=== PATIENT | male | born 1945 | race Caucasian/White ===

== ENCOUNTER 2021-09-06 10:30 | Inpatient (IN) ==
[2021-09-06] MEDS ORDERED: *HR* Metoprolol 5 MG/5 ML VIAL IVP ONE ×2 (10:44→15:46)
[2021-09-06] MEDS ORDERED: 0.9 % Sodium Chloride 250 ML IVC ONE (10:45)
[2021-09-06] MEDS ORDERED: Isovue-370 500 ML BOTTLE IVP ONE (10:45)
[2021-09-06 11:20] LABS: Basophils # 0.1 K/mcL (0.0-0.2); Basophils % 0.5 %; Eosinophils # 0.1 K/mcL (0.0-0.6); Eosinophils % 0.5 %; Hemoglobin 15.4 g/dL (12.9-16.9); Immature Granulocytes % 0.2 % (0-4); Lymphocytes % 8.6 %; Mean Corpuscular HGB Conc 32.8 g/dL (31.6-35.5); Mean Corpuscular Hemoglobin 30.2 pg (28.0-33.3); Mean Corpuscular Volume 92.2 fL (83.0-100.0); Mean Platelet Volume 9.2 fL (9.4-12.4); Monocytes # 0.7 K/mcL (0.0-1.3); Monocytes % 5.9 %; Neutrophils # 9.9 K/mcL (1.6-8.9); Platelet Count 183 K/mcL (140-400); Segmented Neutrophils % 84.3 %; White Blood Count 11.7 K/mcL (4.3-11.1)
[2021-09-06 11:30] LABS: INR 1.5; Prothrombin Time 16.5 Seconds (9.4-12.1)
[2021-09-06 11:33] LABS: Activated Partial Thrombo Time 33.3 Seconds (26.0-36.0)
[2021-09-06 11:49] LABS: Alanine Aminotransferase 19 Units/L (7-52); Albumin 4.2 g/dL (3.5-5.7); Albumin/Globulin Ratio 1.4 (1.1-2.2); Alkaline Phosphatase 81 Units/L (34-104); Aspartate Amino Transferase 25 Units/L (13-39); BUN/Creatinine Ratio 14 (6-26); Bilirubin,Total 0.8 mg/dL (0.3-1.0); Blood Urea Nitrogen 18 mg/dL (8-23); Calcium 8.9 mg/dL (8.6-10.3); Carbon Dioxide 22 mEq/L (23-29); Chloride 106 mEq/L (98-107); Globulin 2.9 g/dL (2.4-3.5); Glucose 254 mg/dL (70-105); Lipase 23 Units/L (11-82); Magnesium 1.6 mg/dL (1.6-2.6); Osmolality,Calculated 299 (280-300); Phosphorous 3.2 mg/dL (2.7-4.5); Potassium 3.3 mEq/L (3.5-5.1); Sodium 139 mEq/L (136-145); Total Protein 7.1 g/dL (6.4-8.9); Troponin I < 0.03 ng/mL (< 0.04); eGFR For African Americans > 60 (> 60); eGFR For Non-African Americans 54 (> 60)
[2021-09-06] MEDS ORDERED: Ketorolac 15 MG/ML VIAL IVP ONE (12:08)
[2021-09-06 13:31] LABS: Bilirubin,Urine Negative (Negative); Blood,Urine Negative (Negative); Clarity,Urine Clear (Clear); Color,Urine Colorless (Yellow); Glucose,Urine (UA) 150 mg/dL (Normal); Ketones,Urine Negative (Negative); Leukocyte Esterase,Urine Negative (Negative); Mucus,Urine Few per lpf (None-Few); Nitrite,Urine Negative (Negative); PH,Urine 7.5 pH Units (5.0-8.0); Protein,Urine Negative (Neg-Trace); RBC,Urine 0-3 per hpf (0-3); Specific Gravity,Urine 1.015 (1.010-1.025); Squamous Epithelial Cell,Urine Few per hpf (None-Few); Urobilinogen,Urine Normal (Normal); WBC,Urine 0-3 per hpf (0-3)
[2021-09-06] MEDS ORDERED: Ondansetron ODT 4 MG TAB.RAPDIS SL PRN (14:11)
[2021-09-06] MEDS ORDERED: Melatonin 3 MG TABLET PO PRN (14:11)
[2021-09-06] MEDS ORDERED: MOM Conc 10 ML UD.LIQ PO PRN (14:11)
[2021-09-06] MEDS ORDERED: Naloxone 0.4 MG/ML INJ IVP PRN (14:11)
[2021-09-06] MEDS ORDERED: 0.9 % Sodium Chloride 1,000 ML IVC SCH (14:15)
[2021-09-06] MEDS ORDERED: *HR* Dextrose 50 % in Water (Syg) 50 ML SYRINGE IVP PRN (14:37)
[2021-09-06] MEDS ORDERED: Dextrose Gel 15 GM/37.5 ML TUBE PO PRN ×2 (14:37)
[2021-09-06] MEDS ORDERED: D5% in Water 1,000 ML IVC PRN (14:37)
[2021-09-06] MEDS ORDERED: Ondansetron 4 MG/2 ML VIAL IVP ONE (15:46)
[2021-09-06] MEDS ORDERED: Ondansetron 4 MG/2 ML VIAL IVP PRN (16:49)
[2021-09-06] MEDS: Insulin LISPRO 300 UNITS/3 ML VIAL SUBQ SCH (17:21)
[2021-09-06] MEDS: MetroNIDAZOLE 500 MG/100 ML 500 MG/100 ML BAG IVPB SCH ×2 (17:21→23:11)
[2021-09-06] MEDS: *HR* Metoprolol 5 MG/5 ML VIAL IVP PRN (18:11)
[2021-09-06] MEDS ORDERED: 0.9 % Sodium Chloride 500 ML IVC ONE (19:34)
[2021-09-06] MEDS ORDERED: *HR* Digoxin 0.5 MG/2 ML AMPUL IVP ONE (19:43)
[2021-09-06] MEDS: Apixaban 5 MG TABLET PO SCH (20:03)
[2021-09-06] MEDS: DilTIAZem 50 MG/50 ML IV.SOLN IVC SCH (22:08)
[2021-09-07 01:43] LABS: Basophils % 0.1 %; Hemoglobin 14.7 g/dL (12.9-16.9); Immature Granulocytes % 0.6 % (0-4); Lymphocytes # 0.2 K/mcL (0.6-4.6); Lymphocytes % 1.4 %; Mean Corpuscular HGB Conc 32.7 g/dL (31.6-35.5); Mean Corpuscular Hemoglobin 30.2 pg (28.0-33.3); Mean Corpuscular Volume 92.4 fL (83.0-100.0); Mean Platelet Volume 9.2 fL (9.4-12.4); Monocytes # 0.4 K/mcL (0.0-1.3); Monocytes % 2.2 %; Neutrophils # 15.4 K/mcL (1.6-8.9); Platelet Count 118 K/mcL (140-400); Red Blood Count 4.87 M/mcL (4.19-5.50); Red Cell Distribution Width 13.2 % (11.5-14.5); Segmented Neutrophils % 95.7 %; White Blood Count 16.1 K/mcL (4.3-11.1)
[2021-09-07 01:56] LABS: Calcium 8.5 mg/dL (8.6-10.3); Magnesium 1.3 mg/dL (1.6-2.6); Potassium 3.1 mEq/L (3.5-5.1)
[2021-09-07] MEDS: Ibuprofen 400 MG TABLET PO PRN ×3 (02:35→18:58)
[2021-09-07] MEDS: DilTIAZem 50 MG/50 ML IV.SOLN IVC SCH (03:48)
[2021-09-07] MEDS ORDERED: Magnesium Oxide 400 MG TABLET PO ONE (07:18)
[2021-09-07] MEDS: Apixaban 5 MG TABLET PO SCH ×2 (08:32→20:22)
[2021-09-07] MEDS: Insulin LISPRO 300 UNITS/3 ML VIAL SUBQ SCH ×3 (08:34→16:54)
[2021-09-07] MEDS ORDERED: Metoprolol XL (24 HR) Succ 25 MG TAB.ER.24H PO SCH (09:00)
[2021-09-07] MEDS: MetroNIDAZOLE 500 MG/100 ML 500 MG/100 ML BAG IVPB SCH (09:37)
[2021-09-07] MEDS ORDERED: Metoprolol XL (24 HR) Succ 50 MG TAB.ER.24H PO SCH (10:15)
[2021-09-07] MEDS: Piperacillin/Tazobactam 3.375 GM in 0.9 % Sodium Chloride Mini Bag 100 ML IVPB SCH ×2 (16:54→23:15)
[2021-09-07] MEDS: *HR* Metoprolol 5 MG/5 ML VIAL IVP PRN (17:25)
[2021-09-07] MEDS ORDERED: DilTIAZem CD (24hr) 120 MG CAP.ER.24H PO SCH (18:30)
[2021-09-07] MEDS ORDERED: Acetaminophen IV 500 MG/50 ML BAG IVPB ONE (19:26)
[2021-09-07] MEDS ORDERED: *HR* Metoprolol 5 MG/5 ML VIAL IVP ONE (19:26)
[2021-09-07] MEDS ORDERED: Topiramate 100 MG TABLET PO SCH (21:00)
[2021-09-07] MEDS ORDERED: levETIRAcetam 250 MG TABLET PO SCH (21:00)
[2021-09-07] MEDS ORDERED: Ringers Solution, Lactated 1,000 ML IVC ONE ×3 (23:02→23:15)
[2021-09-08] MEDS ORDERED: Ringers Solution, Lactated 1,000 ML IVC ONE ×3 (00:30→07:29)
[2021-09-08 01:00] LABS: Basophils % 0.1 %; Hematocrit 40.6 % (37.5-50.1); Hemoglobin 13.1 g/dL (12.9-16.9); Immature Granulocytes % 0.7 % (0-4); Immature Platelets 3.1 % (1.1-6.1); Lymphocytes # 0.4 K/mcL (0.6-4.6); Lymphocytes % 2.8 %; Mean Corpuscular HGB Conc 32.3 g/dL (31.6-35.5); Mean Corpuscular Hemoglobin 30.3 pg (28.0-33.3); Mean Corpuscular Volume 93.8 fL (83.0-100.0); Mean Platelet Volume 9.9 fL (9.4-12.4); Monocytes # 0.9 K/mcL (0.0-1.3); Neutrophils # 13.2 K/mcL (1.6-8.9); Red Blood Count 4.33 M/mcL (4.19-5.50); Red Cell Distribution Width 13.5 % (11.5-14.5); Segmented Neutrophils % 90.4 %; White Blood Count 14.6 K/mcL (4.3-11.1)
[2021-09-08 01:02] LABS: Platelet Count 97 K/mcL (140-400)
[2021-09-08 01:03] LABS: Bacteria,Urine Few per hpf (None-Few); Bilirubin,Urine Negative (Negative); Blood,Urine Large (Negative); Clarity,Urine Turbid (Clear); Color,Urine Yellow (Yellow); Glucose,Urine (UA) Normal (Normal); Ketones,Urine Negative (Negative); Leukocyte Esterase,Urine Small (Negative); Mucus,Urine Few per lpf (None-Few); Nitrite,Urine Negative (Negative); PH,Urine 5.5 pH Units (5.0-8.0); Protein,Urine 70 mg/dL (Neg-Trace); RBC,Urine 50-100 per hpf (0-3); Specific Gravity,Urine > 1.030 (1.010-1.025); Squamous Epithelial Cell,Urine Few per hpf (None-Few); Urobilinogen,Urine Normal (Normal); WBC,Urine 15-30 per hpf (0-3)
[2021-09-08 01:18] LABS: Potassium 3.4 mEq/L (3.5-5.1)
[2021-09-08] MEDS ORDERED: Ringers Solution, Lactated 500 ML IVC ONE (03:30)
[2021-09-08] MEDS ORDERED: *HR* Succinylcholine 200 MG/10 ML VIAL IVP ONE (04:11)
[2021-09-08] MEDS ORDERED: *HR* Propofol 200 MG/20 ML VIAL IVP ONE (04:11)
[2021-09-08] MEDS ORDERED: *HR* FentaNYL (PF) 100 MCG/2 ML VIAL ONE (04:11)
[2021-09-08] MEDS ORDERED: Lidocaine HCL 4 ML Topical Solution (Laryng-O-Jet Kit Sterile Pak) TP ONE (04:11)
[2021-09-08] MEDS ORDERED: *HR* Rocuronium Bromide 50 MG/5 ML VIAL ONE (04:11)
[2021-09-08] MEDS ORDERED: Ondansetron 4 MG/2 ML VIAL ONE (04:11)
[2021-09-08] MEDS ORDERED: Lidocaine -MPF 2% 5 ML VIAL ONE (04:11)
[2021-09-08] MEDS ORDERED: Norepinephrine 4 MG/254 ML IV.SOLN IVC SCH ×2 (04:15→07:29)
[2021-09-08] MEDS ORDERED: 0.9 % Sodium Chloride 500 ML IVC ONE (04:23)
[2021-09-08] MEDS ORDERED: *HR* Vasopressin 20 UNIT/ML VIAL ONE (04:37)
[2021-09-08] MEDS ORDERED: Ondansetron 4 MG/2 ML VIAL IVP PRN ×3 (04:47→14:27)
[2021-09-08] MEDS ORDERED: *HR* HYDROmorphone PF 0.5 MG/0.5 ML SYRINGE IVP PRN (04:47)
[2021-09-08] MEDS ORDERED: Heparin 1,000 UNITS/500 mL 500 ML ONE (05:24)
[2021-09-08] MEDS ORDERED: EPHEDrine 50 MG/ML VIAL ONE (05:31)
[2021-09-08] MEDS ORDERED: Potassium Chloride 40 MEQ, Lidocaine 1% 2 ML in 0.9 % Sodium Chloride 500 ML IVPB ONE (07:11)
[2021-09-08] MEDS ORDERED: Ibuprofen 400 MG TABLET PO PRN (07:29)
[2021-09-08] MEDS ORDERED: *HR* Dextrose 50 % in Water (Syg) 50 ML SYRINGE IVP PRN ×2 (07:29→14:27)
[2021-09-08] MEDS ORDERED: D5% in Water 1,000 ML IVC PRN ×2 (07:29→14:27)
[2021-09-08] MEDS ORDERED: Dextrose Gel 15 GM/37.5 ML TUBE PO PRN ×4 (07:29→14:27)
[2021-09-08] MEDS ORDERED: Naloxone 0.4 MG/ML INJ IVP PRN ×2 (07:29→14:27)
[2021-09-08] MEDS ORDERED: Melatonin 3 MG TABLET PO PRN ×2 (07:29→14:27)
[2021-09-08] MEDS ORDERED: *HR* Metoprolol 5 MG/5 ML VIAL IVP PRN (07:29)
[2021-09-08] MEDS ORDERED: MOM Conc 10 ML UD.LIQ PO PRN ×2 (07:29→14:27)
[2021-09-08] MEDS ORDERED: 0.9 % Sodium Chloride 1,000 ML IVC ONE (07:45)
[2021-09-08] MEDS ORDERED: 0.9 % Sodium Chloride 1,000 ML ONE (07:46)
[2021-09-08] MEDS ORDERED: Piperacillin/Tazobactam 3.375 GM in 0.9 % Sodium Chloride Mini Bag 100 ML IVPB SCH ×2 (08:00)
[2021-09-08] MEDS ORDERED: Cefepime HCl 2,000 MG in Water for inj. (sterile) 20 ML IVP SCH ×2 (08:00→21:00)
[2021-09-08] MEDS: Insulin LISPRO 300 UNITS/3 ML VIAL SUBQ SCH ×3 (08:25→17:07)
[2021-09-08] MEDS ORDERED: DilTIAZem CD (24hr) 120 MG CAP.ER.24H PO SCH (09:00)
[2021-09-08] MEDS ORDERED: Apixaban 5 MG TABLET PO SCH (09:00)
[2021-09-08] MEDS ORDERED: Finasteride 5 MG TABLET PO SCH ×2 (09:00)
[2021-09-08] MEDS ORDERED: levETIRAcetam 500 MG/5 ML UDC PO SCH (09:00)
[2021-09-08] MEDS ORDERED: Metoprolol XL (24 HR) Succ 50 MG TAB.ER.24H PO SCH (09:00)
[2021-09-08] MEDS ORDERED: Aspirin Enteric Coated 81 MG Tablet PO SCH ×2 (09:00)
[2021-09-08] MEDS ORDERED: levETIRAcetam 250 MG TABLET PO SCH (09:00)
[2021-09-08 09:55] LABS: Protein/Creatinine Ratio,Urine 15.11 mg/mg (0.00-0.20); Sodium, Urine 88.4 mEq/L
[2021-09-08] MEDS ORDERED: Ringers Solution, Lactated 1,000 ML IVC SCH (11:30)
[2021-09-08 12:40] LABS: Calcium 7.5 mg/dL (8.6-10.3); Potassium 3.4 mEq/L (3.5-5.1)
[2021-09-08] MEDS: Cefepime HCl 2,000 MG in Water for inj. (sterile) 20 ML IVP SCH (20:35)
[2021-09-08] MEDS: Topiramate 100 MG TABLET PO SCH (20:36)
[2021-09-08] MEDS: Apixaban 5 MG TABLET PO SCH (20:55)
[2021-09-08] MEDS ORDERED: Topiramate 100 MG TABLET PO SCH (21:00)
[2021-09-08] MEDS: Ringers Solution, Lactated 1,000 ML IVC SCH (22:54)
[2021-09-09] MEDS: levETIRAcetam 500 MG/5 ML UDC PO SCH ×3 (00:02→20:27)
[2021-09-09 04:20] LABS: Hematocrit 33.9 % (37.5-50.1); Hemoglobin 11.2 g/dL (12.9-16.9); Immature Platelets 3.4 % (1.1-6.1); Mean Corpuscular Hemoglobin 30.4 pg (28.0-33.3); Mean Corpuscular Volume 92.1 fL (83.0-100.0); Mean Platelet Volume 10.5 fL (9.4-12.4); Red Blood Count 3.68 M/mcL (4.19-5.50); Red Cell Distribution Width 13.4 % (11.5-14.5); White Blood Count 11.2 K/mcL (4.3-11.1)
[2021-09-09 04:32] LABS: Calcium 7.5 mg/dL (8.6-10.3); Potassium 3.2 mEq/L (3.5-5.1)
[2021-09-09] MEDS: Ringers Solution, Lactated 1,000 ML IVC SCH ×3 (05:12→19:56)
[2021-09-09] MEDS: DilTIAZem CD (24hr) 120 MG CAP.ER.24H PO SCH (07:27)
[2021-09-09] MEDS: Aspirin Enteric Coated 81 MG Tablet PO SCH (07:27)
[2021-09-09] MEDS: Finasteride 5 MG TABLET PO SCH (07:27)
[2021-09-09] MEDS: Cefepime HCl 2,000 MG in Water for inj. (sterile) 20 ML IVP SCH (07:28)
[2021-09-09] MEDS: Apixaban 5 MG TABLET PO SCH ×2 (07:28→20:27)
[2021-09-09] MEDS: Metoprolol XL (24 HR) Succ 50 MG TAB.ER.24H PO SCH (07:28)
[2021-09-09] MEDS: Insulin LISPRO 300 UNITS/3 ML VIAL SUBQ SCH ×3 (07:29→16:37)
[2021-09-09] MEDS: Cefepime HCl 1,000 MG in Water for inj. (sterile) 10 ML IVP SCH (08:52)
[2021-09-09] MEDS ORDERED: Calcium Gluconate 1gm/50mL 1 GM/50 ML BAG IVPB ONE (14:50)
[2021-09-09] MEDS: Topiramate 100 MG TABLET PO SCH (19:57)
[2021-09-10 00:38] LABS: Mean Corpuscular Volume 92.5 fL (83.0-100.0)
[2021-09-10 00:40] LABS: Hematocrit 36.8 % (37.5-50.1); Hemoglobin 11.9 g/dL (12.9-16.9); Immature Platelets 3.6 % (1.1-6.1); Mean Corpuscular HGB Conc 32.3 g/dL (31.6-35.5); Mean Corpuscular Hemoglobin 29.9 pg (28.0-33.3); Mean Platelet Volume 9.9 fL (9.4-12.4); Red Blood Count 3.98 M/mcL (4.19-5.50); Red Cell Distribution Width 13.3 % (11.5-14.5); White Blood Count 9.9 K/mcL (4.3-11.1)
[2021-09-10 01:48] LABS: Calcium 7.9 mg/dL (8.6-10.3); Potassium 3.2 mEq/L (3.5-5.1)
[2021-09-10] MEDS: Ringers Solution, Lactated 1,000 ML IVC SCH ×2 (06:42→15:29)
[2021-09-10] MEDS: Insulin LISPRO 300 UNITS/3 ML VIAL SUBQ SCH ×3 (09:11→16:37)
[2021-09-10] MEDS: Finasteride 5 MG TABLET PO SCH (09:11)
[2021-09-10] MEDS: Metoprolol XL (24 HR) Succ 50 MG TAB.ER.24H PO SCH (09:11)
[2021-09-10] MEDS: Apixaban 5 MG TABLET PO SCH (09:11)
[2021-09-10] MEDS: Cefepime HCl 1,000 MG in Water for inj. (sterile) 10 ML IVP SCH (09:11)
[2021-09-10] MEDS: DilTIAZem CD (24hr) 120 MG CAP.ER.24H PO SCH (09:11)
[2021-09-10] MEDS: Aspirin Enteric Coated 81 MG Tablet PO SCH (09:11)
[2021-09-10] MEDS: levETIRAcetam 500 MG/5 ML UDC PO SCH ×2 (09:12→21:08)
[2021-09-10] MEDS: Topiramate 100 MG TABLET PO SCH (21:09)
[2021-09-10 22:48] LABS: Lambda Qnt Free Light Chains 45.69 mg/L (5.71-26.30)
[2021-09-11] MEDS: Ringers Solution, Lactated 1,000 ML IVC SCH ×3 (02:09→23:51)
[2021-09-11 02:56] LABS: Hematocrit 37.5 % (37.5-50.1); Hemoglobin 12.2 g/dL (12.9-16.9); Immature Platelets 2.5 % (1.1-6.1); Mean Corpuscular HGB Conc 32.5 g/dL (31.6-35.5); Mean Corpuscular Hemoglobin 30.7 pg (28.0-33.3); Mean Corpuscular Volume 94.2 fL (83.0-100.0); Mean Platelet Volume 10.2 fL (9.4-12.4); Red Blood Count 3.98 M/mcL (4.19-5.50); Red Cell Distribution Width 13.2 % (11.5-14.5); White Blood Count 7.8 K/mcL (4.3-11.1)
[2021-09-11 03:13] LABS: Calcium 7.7 mg/dL (8.6-10.3)
[2021-09-11] MEDS ORDERED: Potassium Chloride 40 MEQ, Lidocaine 1% 2 ML in 0.9 % Sodium Chloride 500 ML IVPB ONE (08:22)
[2021-09-11] MEDS: Aspirin Enteric Coated 81 MG Tablet PO SCH (08:42)
[2021-09-11] MEDS: Metoprolol XL (24 HR) Succ 50 MG TAB.ER.24H PO SCH (08:42)
[2021-09-11] MEDS: levETIRAcetam 500 MG/5 ML UDC PO SCH (08:42)
[2021-09-11] MEDS: Finasteride 5 MG TABLET PO SCH (08:42)
[2021-09-11] MEDS: DilTIAZem CD (24hr) 120 MG CAP.ER.24H PO SCH (08:42)
[2021-09-11] MEDS: Insulin LISPRO 300 UNITS/3 ML VIAL SUBQ SCH ×3 (08:43→16:43)
[2021-09-11 11:17] LABS: Kappa Qnt Free Light Chains 97.12 mg/L (3.30-19.40)
[2021-09-11 11:18] LABS: VBG HCO3 21 mEq/L (21-27); VBG PCO2 32 mmHg (41-51); VBG PH 7.43 pH Units (7.32-7.42); VBG PO2 159 mmHg (25-50)
[2021-09-11] MEDS: Topiramate 100 MG TABLET PO SCH (21:49)
[2021-09-12 05:08] LABS: Hematocrit 33.6 % (37.5-50.1); Hemoglobin 11.2 g/dL (12.9-16.9); Mean Corpuscular HGB Conc 33.3 g/dL (31.6-35.5); Mean Corpuscular Hemoglobin 30.6 pg (28.0-33.3); Mean Corpuscular Volume 91.8 fL (83.0-100.0); Mean Platelet Volume 9.9 fL (9.4-12.4); Platelet Count 103 K/mcL (140-400); Red Blood Count 3.66 M/mcL (4.19-5.50); Red Cell Distribution Width 13.1 % (11.5-14.5)
[2021-09-12 05:18] LABS: Calcium 8.2 mg/dL (8.6-10.3); Potassium 3.1 mEq/L (3.5-5.1)
[2021-09-12] MEDS: Aspirin Enteric Coated 81 MG Tablet PO SCH (07:52)
[2021-09-12] MEDS: Metoprolol XL (24 HR) Succ 50 MG TAB.ER.24H PO SCH (07:52)
[2021-09-12] MEDS: Finasteride 5 MG TABLET PO SCH (07:52)
[2021-09-12] MEDS: DilTIAZem CD (24hr) 120 MG CAP.ER.24H PO SCH (07:53)
[2021-09-12] MEDS: Insulin LISPRO 300 UNITS/3 ML VIAL SUBQ SCH ×3 (08:40→16:45)
[2021-09-12] MEDS: Ringers Solution, Lactated 1,000 ML IVC SCH (08:49)
[2021-09-12] MEDS: Topiramate 100 MG TABLET PO SCH (20:08)
[2021-09-12] MEDS: levETIRAcetam 500 MG/5 ML UDC PO SCH (21:35)
[2021-09-13 01:57] LABS: Hematocrit 34.5 % (37.5-50.1); Hemoglobin 11.3 g/dL (12.9-16.9); Mean Corpuscular HGB Conc 32.8 g/dL (31.6-35.5); Mean Corpuscular Hemoglobin 30.5 pg (28.0-33.3); Mean Corpuscular Volume 93.2 fL (83.0-100.0); Mean Platelet Volume 10.3 fL (9.4-12.4); Platelet Count 130 K/mcL (140-400); White Blood Count 8.2 K/mcL (4.3-11.1)
[2021-09-13 02:08] LABS: Calcium 8.5 mg/dL (8.6-10.3); Potassium 3.1 mEq/L (3.5-5.1)
[2021-09-13] MEDS: DilTIAZem CD (24hr) 120 MG CAP.ER.24H PO SCH (09:45)
[2021-09-13] MEDS: Metoprolol XL (24 HR) Succ 50 MG TAB.ER.24H PO SCH (09:46)
[2021-09-13] MEDS: Aspirin Enteric Coated 81 MG Tablet PO SCH (09:47)
[2021-09-13] MEDS: Finasteride 5 MG TABLET PO SCH (09:47)
[2021-09-13] MEDS: Insulin LISPRO 300 UNITS/3 ML VIAL SUBQ SCH ×3 (09:51→16:05)
[2021-09-13] MEDS: levETIRAcetam 500 MG/5 ML UDC PO SCH ×2 (09:57→22:02)
[2021-09-13] MEDS: Apixaban 5 MG TABLET PO SCH (21:59)
[2021-09-13] MEDS: Topiramate 100 MG TABLET PO SCH (21:59)
[2021-09-14 02:41] LABS: Hematocrit 35.6 % (37.5-50.1); Hemoglobin 11.5 g/dL (12.9-16.9); Mean Corpuscular HGB Conc 32.3 g/dL (31.6-35.5); Mean Corpuscular Hemoglobin 30.1 pg (28.0-33.3); Mean Corpuscular Volume 93.2 fL (83.0-100.0); Mean Platelet Volume 9.9 fL (9.4-12.4); Platelet Count 173 K/mcL (140-400); Red Blood Count 3.82 M/mcL (4.19-5.50); Red Cell Distribution Width 12.9 % (11.5-14.5); White Blood Count 7.9 K/mcL (4.3-11.1)
[2021-09-14 03:04] LABS: Calcium 8.5 mg/dL (8.6-10.3); Potassium 3.5 mEq/L (3.5-5.1)
[2021-09-14] MEDS: Insulin LISPRO 300 UNITS/3 ML VIAL SUBQ SCH ×3 (08:27→15:46)
[2021-09-14] MEDS: Metoprolol XL (24 HR) Succ 50 MG TAB.ER.24H PO SCH (08:28)
[2021-09-14] MEDS: Finasteride 5 MG TABLET PO SCH (08:28)
[2021-09-14] MEDS: Apixaban 5 MG TABLET PO SCH ×2 (08:28→21:50)
[2021-09-14] MEDS: Aspirin Enteric Coated 81 MG Tablet PO SCH (08:28)
[2021-09-14] MEDS: DilTIAZem CD (24hr) 120 MG CAP.ER.24H PO SCH (08:28)
[2021-09-14] MEDS: levETIRAcetam 500 MG/5 ML UDC PO SCH ×2 (08:34→21:49)
[2021-09-14] MEDS: Topiramate 100 MG TABLET PO SCH (21:50)
[2021-09-15 04:16] LABS: Calcium 8.2 mg/dL (8.6-10.3); Potassium 3.3 mEq/L (3.5-5.1)
[2021-09-15] MEDS: levETIRAcetam 500 MG/5 ML UDC PO SCH (07:58)
[2021-09-15] MEDS: Aspirin Enteric Coated 81 MG Tablet PO SCH (07:58)
[2021-09-15] MEDS: Finasteride 5 MG TABLET PO SCH (07:59)
[2021-09-15] MEDS: DilTIAZem CD (24hr) 120 MG CAP.ER.24H PO SCH (07:59)
[2021-09-15] MEDS: Apixaban 5 MG TABLET PO SCH (07:59)
[2021-09-15] MEDS: Insulin LISPRO 300 UNITS/3 ML VIAL SUBQ SCH ×3 (08:02→19:26)
[2021-09-15] MEDS: Metoprolol XL (24 HR) Succ 50 MG TAB.ER.24H PO SCH (09:00)
[2021-09-15 17:02] LABS: Adenovirus Not Detected (Not Detect); Bordetella Pertussis Not Detected (Not Detect); Chlamydophila pneumoniae Not Detected (Not Detect); Coronavirus 229E Not Detected (Not Detect); Coronavirus HKU1 Not Detected (Not Detect); Coronavirus NL63 Not Detected (Not Detect); Coronavirus OC43 Not Detected (Not Detect); Human Metapneumovirus Not Detected (Not Detect); Human Rhinovirus/Enterovirus Not Detected (Not Detect); Influenza A Subtype 2009 H1 Not Detected (Not Detect); Influenza B Not Detected (Not Detect); Mycoplasma pneumoniae Not Detected (Not Detect); Parainfluenza Virus 1 Not Detected (Not Detect); Parainfluenza Virus 2 Not Detected (Not Detect); Parainfluenza Virus 3 Not Detected (Not Detect); Parainfluenza Virus 4 Not Detected (Not Detect); Respiratory Syncytial Virus Not Detected (Not Detect); SARS-CoV-2 Not Detected (Not Detect)
[2021-09-15] MEDS ORDERED: levETIRAcetam 250 MG TABLET PO SCH (21:00)
== END 2021-09-15 19:10 | DRG 659 ==
LOC: EMEROOARM 10:30 → 3ANU 10:30 → SUATTDRO 09-07 18:34 → ICNU 09-08 04:01 → 2NNU 09-08 15:45 → 2ANU 09-09 15:26
PROVIDERS: ADMIT Pharmacist; ATTEND Internal Medicine

== ENCOUNTER 2021-11-19 20:36 | Inpatient (IN) ==
[2021-11-19] MEDS ORDERED: *HR* Metoprolol 5 MG/5 ML VIAL IVP ONE (21:20)
[2021-11-19] MEDS ORDERED: cefTRIAXone 1,000 MG in Water for inj. (sterile) 10 ML IVP ONE (21:20)
[2021-11-19 21:25] LABS: Basophils # 0.1 K/mcL (0.0-0.2); Basophils % 0.3 %; Eosinophils % 0.2 %; Hematocrit 42.8 % (37.5-50.1); Hemoglobin 13.9 g/dL (12.9-16.9); Immature Granulocytes % 0.4 % (0-4); Lymphocytes # 0.3 K/mcL (0.6-4.6); Lymphocytes % 1.7 %; Mean Corpuscular HGB Conc 32.5 g/dL (31.6-35.5); Mean Corpuscular Volume 92.2 fL (83.0-100.0); Mean Platelet Volume 9.3 fL (9.4-12.4); Monocytes # 0.5 K/mcL (0.0-1.3); Monocytes % 2.9 %; Neutrophils # 16.6 K/mcL (1.6-8.9); Platelet Count 169 K/mcL (140-400); Red Blood Count 4.64 M/mcL (4.19-5.50); Red Cell Distribution Width 13.2 % (11.5-14.5); Segmented Neutrophils % 94.5 %; White Blood Count 17.6 K/mcL (4.3-11.1)
[2021-11-19 21:36] LABS: INR 1.2; Prothrombin Time 13.7 Seconds (9.4-12.1)
[2021-11-19 21:40] LABS: Alanine Aminotransferase 12 Units/L (7-52); Albumin 3.9 g/dL (3.5-5.7); Albumin/Globulin Ratio 1.3 (1.1-2.2); Alkaline Phosphatase 100 Units/L (34-104); Aspartate Amino Transferase 12 Units/L (13-39); BUN/Creatinine Ratio 15 (6-26); Bilirubin,Total 0.7 mg/dL (0.3-1.0); Blood Urea Nitrogen 18 mg/dL (8-23); Calcium 9.3 mg/dL (8.6-10.3); Carbon Dioxide 22 mEq/L (23-29); Chloride 106 mEq/L (98-107); Globulin 3.1 g/dL (2.4-3.5); Glucose 229 mg/dL (70-105); Osmolality,Calculated 297 (280-300); Potassium 3.5 mEq/L (3.5-5.1); Sodium 139 mEq/L (136-145); eGFR For African Americans > 60 (> 60); eGFR For Non-African Americans 59 (> 60)
[2021-11-19 22:51] LABS: Bilirubin,Urine Negative (Negative); Blood,Urine Large (Negative); Clarity,Urine Turbid (Clear); Color,Urine Red (Yellow); Glucose,Urine (UA) Normal (Normal); Ketones,Urine Negative (Negative); Leukocyte Esterase,Urine Small (Negative); Nitrite,Urine Positive (Negative); PH,Urine 6.5 pH Units (5.0-8.0); Protein,Urine >=300 mg/dL (Neg-Trace); Specific Gravity,Urine 1.015 (1.010-1.025); Urobilinogen,Urine Normal (Normal)
[2021-11-20] MEDS ORDERED: Melatonin 3 MG TABLET PO PRN (03:59)
[2021-11-20] MEDS ORDERED: Naloxone 0.4 MG/ML INJ IVP PRN (03:59)
[2021-11-20] MEDS ORDERED: Dextrose Gel 15 GM/37.5 ML TUBE PO PRN ×2 (04:01)
[2021-11-20] MEDS ORDERED: *HR* Dextrose 50 % in Water (Syg) 50 ML SYRINGE IVP PRN (04:01)
[2021-11-20] MEDS ORDERED: D5% in Water 1,000 ML IVC PRN (04:01)
[2021-11-20] MEDS ORDERED: 0.9 % Sodium Chloride 1,000 ML IVC ONE (04:13)
[2021-11-20 05:03] LABS: Influenza A PCR Negative (Negative); Influenza B PCR Negative (Negative); Resp. Syncytial Virus PCR Negative (Negative)
[2021-11-20 05:05] LABS: SARS-CoV-2 by PCR (In House) Negative (Negative)
[2021-11-20] MEDS: levETIRAcetam 250 MG TABLET PO SCH ×2 (05:54→17:19)
[2021-11-20 06:30] LABS: Hematocrit 40.7 % (37.5-50.1); Hemoglobin 13.1 g/dL (12.9-16.9); Mean Corpuscular HGB Conc 32.2 g/dL (31.6-35.5); Mean Corpuscular Hemoglobin 30.4 pg (28.0-33.3); Mean Corpuscular Volume 94.4 fL (83.0-100.0); Mean Platelet Volume 9.4 fL (9.4-12.4); Platelet Count 175 K/mcL (140-400); Red Blood Count 4.31 M/mcL (4.19-5.50); Red Cell Distribution Width 13.3 % (11.5-14.5); White Blood Count 26.4 K/mcL (4.3-11.1)
[2021-11-20 06:37] LABS: INR 1.3; Prothrombin Time 14.6 Seconds (9.4-12.1)
[2021-11-20 06:49] LABS: BUN/Creatinine Ratio 17 (6-26); Blood Urea Nitrogen 21 mg/dL (8-23); Calcium 8.9 mg/dL (8.6-10.3); Carbon Dioxide 22 mEq/L (23-29); Chloride 108 mEq/L (98-107); Glucose 176 mg/dL (70-105); Magnesium 1.6 mg/dL (1.6-2.6); Osmolality,Calculated 295 (280-300); Potassium 3.8 mEq/L (3.5-5.1); Sodium 139 mEq/L (136-145); eGFR For African Americans > 60 (> 60); eGFR For Non-African Americans 58 (> 60)
[2021-11-20] MEDS: Insulin LISPRO 300 UNITS/3 ML VIAL SUBQ SCH ×4 (09:00→21:03)
[2021-11-20] MEDS ORDERED: Finasteride 5 MG TABLET PO SCH (09:00)
[2021-11-20] MEDS: Piperacillin/Tazobactam 3.375 GM in 0.9 % Sodium Chloride Mini Bag 100 ML IVPB SCH ×3 (09:01→23:14)
[2021-11-20] MEDS ORDERED: 0.9 % Sodium Chloride 1,000 ML IVC SCH (18:30)
[2021-11-20] MEDS ORDERED: cefTRIAXone 1,000 MG in 0.9 % Sodium Chloride Mini Bag 100 ML IVPB SCH (21:00)
[2021-11-20] MEDS ORDERED: LEVETIRACETAM 500 MG PO SCH (21:00)
[2021-11-20] MEDS ORDERED: Topiramate 100 MG TABLET PO SCH (21:00)
[2021-11-20] MEDS: Topiramate 100 MG TABLET PO SCH (21:04)
[2021-11-20 22:23] LABS: Acinetobacter baumannii by PCR Not Detected (Not Detect); Candida albicans by PCR Not Detected (Not Detect); Candida glabrata by PCR Not Detected (Not Detect); Candida krusei by PCR Not Detected (Not Detect); Candida parapsilosis by PCR Not Detected (Not Detect); Candida tropicalis by PCR Not Detected (Not Detect); Enterobacter cloacae Cmplx PCR Not Detected (Not Detect); Enterobacteriaceae by PCR Not Detected (Not Detect); Enterococcus by PCR Not Detected (Not Detect); Escherichia coli by PCR Not Detected (Not Detect); Klebsiella oxytoca by PCR Not Detected (Not Detect); Klebsiella pneumoniae by PCR Not Detected (Not Detect); Proteus by PCR Not Detected (Not Detect); Pseudomonas aeruginosa by PCR Not Detected (Not Detect); Serratia marcescens by PCR Not Detected (Not Detect); Staphylococcus aureus by PCR Not Detected (Not Detect); Staphylococcus by PCR DETECTED (Not Detect); Streptococcus agalactiae(B)PCR Not Detected (Not Detect); Streptococcus by PCR Not Detected (Not Detect); Streptococcus pneumoniae PCR Not Detected (Not Detect); Streptococcus pyogenes (A) PCR Not Detected (Not Detect); blaKPC Carbapenem-Resist Gene Not Detected (Not Detect); mecA Methicillin-Resist Gene DETECTED (Not Detect); vanA/B Vancomycin-Resist Genes Not Detected (Not Detect)
[2021-11-20] MEDS ORDERED: Vancomycin 1,750 MG in 0.9 % Sodium Chloride 250 ML IVPB SCH (23:00)
[2021-11-21] MEDS ORDERED: Vancomycin 1,750 MG/517.5 ML IV.SOLN IVPB ONE (02:00)
[2021-11-21] MEDS: levETIRAcetam 250 MG TABLET PO SCH ×2 (04:56→17:59)
[2021-11-21 06:05] LABS: BUN/Creatinine Ratio 17 (6-26); Blood Urea Nitrogen 21 mg/dL (8-23); Calcium 8.5 mg/dL (8.6-10.3); Carbon Dioxide 22 mEq/L (23-29); Chloride 109 mEq/L (98-107); Glucose 155 mg/dL (70-105); Magnesium 1.8 mg/dL (1.6-2.6); Osmolality,Calculated 292 (280-300); Potassium 3.6 mEq/L (3.5-5.1); Sodium 138 mEq/L (136-145); eGFR For African Americans > 60 (> 60); eGFR For Non-African Americans 56 (> 60)
[2021-11-21 06:16] LABS: Hematocrit 38.3 % (37.5-50.1); Mean Corpuscular HGB Conc 31.3 g/dL (31.6-35.5); Mean Corpuscular Hemoglobin 29.9 pg (28.0-33.3); Mean Corpuscular Volume 95.3 fL (83.0-100.0); Mean Platelet Volume 9.6 fL (9.4-12.4); Platelet Count 147 K/mcL (140-400); Red Blood Count 4.02 M/mcL (4.19-5.50); Red Cell Distribution Width 13.6 % (11.5-14.5)
[2021-11-21 06:26] LABS: White Blood Count 10.2 K/mcL (4.3-11.1)
[2021-11-21] MEDS ORDERED: Perflutren Lipid Microsphere 1.3 ML in 0.9 % Sodium Chloride 8.7 ML IVP PRN (07:42)
[2021-11-21] MEDS: Insulin LISPRO 300 UNITS/3 ML VIAL SUBQ SCH ×4 (08:32→21:11)
[2021-11-21] MEDS: Aspirin Enteric Coated 81 MG Tablet PO SCH (08:33)
[2021-11-21] MEDS: Piperacillin/Tazobactam 3.375 GM in 0.9 % Sodium Chloride Mini Bag 100 ML IVPB SCH ×2 (08:34→17:59)
[2021-11-21] MEDS ORDERED: Metoprolol XL (24 HR) Succ 25 MG TAB.ER.24H PO SCH (09:00)
[2021-11-21] MEDS: Finasteride 5 MG TABLET PO SCH (11:04)
[2021-11-21] MEDS: Vancomycin 1,750 MG/517.5 ML IV.SOLN IVPB SCH (14:07)
[2021-11-21] MEDS: Topiramate 100 MG TABLET PO SCH (21:11)
[2021-11-22] MEDS: Piperacillin/Tazobactam 3.375 GM in 0.9 % Sodium Chloride Mini Bag 100 ML IVPB SCH ×2 (00:19→09:15)
[2021-11-22] MEDS: levETIRAcetam 250 MG TABLET PO SCH ×2 (04:52→16:49)
[2021-11-22] MEDS: Aspirin Enteric Coated 81 MG Tablet PO SCH (09:15)
[2021-11-22] MEDS: Finasteride 5 MG TABLET PO SCH (09:15)
[2021-11-22] MEDS: Metoprolol XL (24 HR) Succ 25 MG TAB.ER.24H PO SCH (09:15)
[2021-11-22] MEDS: Insulin LISPRO 300 UNITS/3 ML VIAL SUBQ SCH ×4 (09:16→21:27)
[2021-11-22 12:51] LABS: Hematocrit 36.6 % (37.5-50.1); Hemoglobin 11.3 g/dL (12.9-16.9); Mean Corpuscular HGB Conc 30.9 g/dL (31.6-35.5); Mean Corpuscular Hemoglobin 29.5 pg (28.0-33.3); Mean Corpuscular Volume 95.6 fL (83.0-100.0); Mean Platelet Volume 9.7 fL (9.4-12.4); Platelet Count 137 K/mcL (140-400); Red Blood Count 3.83 M/mcL (4.19-5.50); Red Cell Distribution Width 13.4 % (11.5-14.5); White Blood Count 5.7 K/mcL (4.3-11.1)
[2021-11-22 13:13] LABS: BUN/Creatinine Ratio 15 (6-26); Blood Urea Nitrogen 17 mg/dL (8-23); Calcium 8.4 mg/dL (8.6-10.3); Carbon Dioxide 23 mEq/L (23-29); Chloride 110 mEq/L (98-107); Glucose 181 mg/dL (70-105); Osmolality,Calculated 294 (280-300); Potassium 3.6 mEq/L (3.5-5.1); Sodium 139 mEq/L (136-145); eGFR For African Americans > 60 (> 60); eGFR For Non-African Americans > 60 (> 60)
[2021-11-22] MEDS: Vancomycin 1,750 MG/517.5 ML IV.SOLN IVPB SCH (13:53)
[2021-11-22] MEDS: Topiramate 100 MG TABLET PO SCH (19:51)
[2021-11-23] MEDS: levETIRAcetam 250 MG TABLET PO SCH ×2 (05:47→16:59)
[2021-11-23] MEDS: Insulin LISPRO 300 UNITS/3 ML VIAL SUBQ SCH ×4 (07:24→22:21)
[2021-11-23] MEDS: Metoprolol XL (24 HR) Succ 25 MG TAB.ER.24H PO SCH (07:57)
[2021-11-23] MEDS: Aspirin Enteric Coated 81 MG Tablet PO SCH (07:57)
[2021-11-23] MEDS: Finasteride 5 MG TABLET PO SCH (07:58)
[2021-11-23] MEDS: Vancomycin 1,750 MG/517.5 ML IV.SOLN IVPB SCH (15:00)
[2021-11-23] MEDS: Topiramate 100 MG TABLET PO SCH (20:27)
[2021-11-24 05:12] LABS: Hematocrit 37.1 % (37.5-50.1); Hemoglobin 11.9 g/dL (12.9-16.9); Mean Corpuscular HGB Conc 32.1 g/dL (31.6-35.5); Mean Corpuscular Hemoglobin 30.1 pg (28.0-33.3); Mean Corpuscular Volume 93.7 fL (83.0-100.0); Mean Platelet Volume 9.6 fL (9.4-12.4); Platelet Count 169 K/mcL (140-400); Red Blood Count 3.96 M/mcL (4.19-5.50); Red Cell Distribution Width 13.2 % (11.5-14.5); White Blood Count 5.7 K/mcL (4.3-11.1)
[2021-11-24 05:28] LABS: BUN/Creatinine Ratio 15 (6-26); Blood Urea Nitrogen 14 mg/dL (8-23); Calcium 8.7 mg/dL (8.6-10.3); Carbon Dioxide 21 mEq/L (23-29); Chloride 113 mEq/L (98-107); Glucose 135 mg/dL (70-105); Osmolality,Calculated 295 (280-300); Potassium 3.7 mEq/L (3.5-5.1); Sodium 141 mEq/L (136-145); eGFR For African Americans > 60 (> 60); eGFR For Non-African Americans > 60 (> 60)
[2021-11-24] MEDS: levETIRAcetam 250 MG TABLET PO SCH ×2 (06:50→18:05)
[2021-11-24] MEDS: Insulin LISPRO 300 UNITS/3 ML VIAL SUBQ SCH ×4 (07:07→21:12)
[2021-11-24] MEDS: Finasteride 5 MG TABLET PO SCH (07:59)
[2021-11-24] MEDS: Aspirin Enteric Coated 81 MG Tablet PO SCH (07:59)
[2021-11-24] MEDS: Metoprolol XL (24 HR) Succ 25 MG TAB.ER.24H PO SCH (07:59)
[2021-11-24] MEDS: Apixaban 5 MG TABLET PO SCH ×2 (07:59→21:13)
[2021-11-24] MEDS ORDERED: Metoprolol XL (24 HR) Succ 25 MG TAB.ER.24H PO ONE (10:00)
[2021-11-24] MEDS: Vancomycin 1,750 MG/517.5 ML IV.SOLN IVPB SCH (14:55)
[2021-11-24] MEDS: Topiramate 100 MG TABLET PO SCH (21:13)
[2021-11-25] MEDS: levETIRAcetam 250 MG TABLET PO SCH ×2 (07:15→17:46)
[2021-11-25] MEDS: Insulin LISPRO 300 UNITS/3 ML VIAL SUBQ SCH ×4 (08:30→21:17)
[2021-11-25] MEDS: Aspirin Enteric Coated 81 MG Tablet PO SCH (08:38)
[2021-11-25] MEDS: Metoprolol XL (24 HR) Succ 25 MG TAB.ER.24H PO SCH (08:39)
[2021-11-25] MEDS: Finasteride 5 MG TABLET PO SCH (08:39)
[2021-11-25] MEDS: Apixaban 5 MG TABLET PO SCH (08:40)
[2021-11-25 09:13] LABS: eGFR For African Americans > 60 (> 60); eGFR For Non-African Americans > 60 (> 60)
[2021-11-25] MEDS: Vancomycin 1,750 MG/517.5 ML IV.SOLN IVPB SCH (13:55)
[2021-11-25] MEDS: Topiramate 100 MG TABLET PO SCH (21:06)
[2021-11-26 01:25] LABS: Hemoglobin 11.4 g/dL (12.9-16.9); Mean Corpuscular HGB Conc 31.7 g/dL (31.6-35.5); Mean Corpuscular Hemoglobin 29.8 pg (28.0-33.3); Platelet Count 164 K/mcL (140-400); Red Blood Count 3.83 M/mcL (4.19-5.50); Red Cell Distribution Width 13.2 % (11.5-14.5); White Blood Count 6.9 K/mcL (4.3-11.1)
[2021-11-26 01:46] LABS: BUN/Creatinine Ratio 15 (6-26); Blood Urea Nitrogen 15 mg/dL (8-23); Calcium 8.4 mg/dL (8.6-10.3); Carbon Dioxide 20 mEq/L (23-29); Chloride 112 mEq/L (98-107); Glucose 181 mg/dL (70-105); Osmolality,Calculated 293 (280-300); Potassium 3.5 mEq/L (3.5-5.1); Sodium 139 mEq/L (136-145); eGFR For African Americans > 60 (> 60); eGFR For Non-African Americans > 60 (> 60)
[2021-11-26] MEDS: levETIRAcetam 250 MG TABLET PO SCH ×2 (04:57→16:49)
[2021-11-26] MEDS ORDERED: Lidocaine -MPF 1% 5 ML AMPUL INFILT ONE (07:56)
[2021-11-26] MEDS: Insulin LISPRO 300 UNITS/3 ML VIAL SUBQ SCH ×4 (08:11→21:08)
[2021-11-26] MEDS ORDERED: *HR* FentaNYL (PF) 100 MCG/2 ML VIAL IVP PRN (09:12)
[2021-11-26] MEDS ORDERED: Lidocaine Viscous Oral Soln 15 ML SOLUTION MM PRN ×2 (09:12→10:06)
[2021-11-26] MEDS ORDERED: 0.9 % Sodium Chloride 500 ML IVC ONE ×2 (09:13→10:07)
[2021-11-26] MEDS ORDERED: *HR* Midazolam HCl 5 MG/5 ML VIAL IVP PRN (09:13)
[2021-11-26] MEDS: *HR* Midazolam HCl 5 MG/5 ML VIAL IVP PRN ×2 (10:15→10:20)
[2021-11-26] MEDS: *HR* FentaNYL (PF) 100 MCG/2 ML VIAL IVP PRN ×2 (10:15→10:20)
[2021-11-26] MEDS: Vancomycin 1,750 MG/517.5 ML IV.SOLN IVPB SCH (13:38)
[2021-11-26] MEDS: Finasteride 5 MG TABLET PO SCH (13:39)
[2021-11-26] MEDS: Metoprolol XL (24 HR) Succ 25 MG TAB.ER.24H PO SCH (13:39)
[2021-11-26] MEDS: Aspirin Enteric Coated 81 MG Tablet PO SCH (13:39)
[2021-11-26] MEDS: Topiramate 100 MG TABLET PO SCH (21:08)
[2021-11-27] MEDS: levETIRAcetam 250 MG TABLET PO SCH ×2 (05:12→17:57)
[2021-11-27] MEDS ORDERED: *HR* Enoxaparin 40 MG/0.4 ML SYRINGE SQ SCH (06:00)
[2021-11-27 06:15] LABS: Influenza A PCR Negative (Negative); Influenza B PCR Negative (Negative); Resp. Syncytial Virus PCR Negative (Negative)
[2021-11-27 06:19] LABS: SARS-CoV-2 by PCR (In House) Negative (Negative)
[2021-11-27] MEDS: Finasteride 5 MG TABLET PO SCH (08:11)
[2021-11-27] MEDS: Metoprolol XL (24 HR) Succ 25 MG TAB.ER.24H PO SCH (08:11)
[2021-11-27] MEDS: Aspirin Enteric Coated 81 MG Tablet PO SCH (08:11)
[2021-11-27] MEDS: Insulin LISPRO 300 UNITS/3 ML VIAL SUBQ SCH ×4 (08:12→19:45)
[2021-11-27 15:49] LABS: BUN/Creatinine Ratio 16 (6-26); Blood Urea Nitrogen 16 mg/dL (8-23); Calcium 8.5 mg/dL (8.6-10.3); Carbon Dioxide 24 mEq/L (23-29); Chloride 110 mEq/L (98-107); Glucose 158 mg/dL (70-105); Osmolality,Calculated 292 (280-300); Potassium 3.7 mEq/L (3.5-5.1); Sodium 139 mEq/L (136-145); Vancomycin,Trough 14 mcg/mL (5-10); eGFR For African Americans > 60 (> 60); eGFR For Non-African Americans > 60 (> 60)
[2021-11-27] MEDS: Vancomycin 1,750 MG/517.5 ML IV.SOLN IVPB SCH (16:50)
[2021-11-27 19:11] VITALS: BP 131/79; PULSE 78; TEMP 98.7; O2SAT 95
[2021-11-27] MEDS: Topiramate 100 MG TABLET PO SCH (19:42)
== END 2021-11-27 21:00 | DRG 698 ==
LOC: 2ANU 20:36 → EMEROOARM 20:36 → SUATTDRO 11-20 05:08 → 2ANU 11-20 05:34 → SUATTDRO 11-21 17:50
PROVIDERS: ADMIT Student in an Organized Health Care Education/Training Program; ATTEND Internal Medicine